=== PATIENT | male | born 1990 | race Caucasian/White ===

== ENCOUNTER 2024-02-06 23:22 | Emergency (ER) | payer SELFPAY ==
[2024-02-06 23:35] VITALS: BMI 31.3
[2024-02-06] MEDS ORDERED: TETRACAINE 0.5% OPHTH SOLN 2 ML BOTTLE ONE (23:49)
[2024-02-06] MEDS ORDERED: FLUORESCEIN NA 1 EA STRIP ONE (23:51)
[2024-02-06] MEDS: TETRACAINE 0.5% HCL 0.6ML DROPPER.BOTTLE OD ONE (23:52)
[2024-02-07] MEDS: OFLOXACIN 0.3% OPHTHALMIC SOLUTION 5 ML BOTTLE OD SCH (00:14)
[2024-02-07] MEDS ORDERED: KETOROLAC TROMETHAMINE 30 MG/1 ML VIAL ONE (01:53)
[2024-02-07 02:56] VITALS: PULSE 74; RESP 18
[2024-02-07 02:58] VITALS: BP 148/81; TEMP 97
== END 2024-02-07 02:57 | disposition short-term general hospital (02) ==
LOC: JER 23:22
DX: H57.13 Ocular pain, bilateral (principal); R06.00 Dyspnea, unspecified; Z20.822 Contact with and (suspected) exposure to COVID-19
CPT/HCPCS: 0241U-QW; 71046-TC-FY; 99285-25